=== PATIENT | female | born 1955 | race Caucasian/White ===

== ENCOUNTER 2018-09-10 06:00 | Day surgery (SDC) | payer OTHER ==
[~2018-09-10] VITALS: Ht 157.5 cm; Wt 77.0 kg
[2018-09-10 07:10] VITALS: Ht 157.5 cm; Wt 77.0 kg
[2018-09-10] MEDS ORDERED: VIT D (07:18)
[2018-09-10] MEDS ORDERED: OMEGA (07:18)
[2018-09-10] MEDS ORDERED: CALCIUM DAILY (07:18)
[2018-09-10] MEDS ORDERED: OMEP20CA16 PO (07:18)
[2018-09-10 07:31] VITALS: BP 143/78; PULSE 55; RESP 16
[2018-09-10] MEDS ORDERED: LIDOCAINE 4% SOLUTION 50 ML BTL ONE (07:33)
[2018-09-10] MEDS ORDERED: FENTAnyl 50 MCG/ML VIAL ONE (08:13)
[2018-09-10] MEDS ORDERED: MIDAZOLAM 1 MG/ML 2 ML INJ ONE ×2 (08:14)
[2018-09-10 08:33] VITALS: BP 101/55; PULSE 57; RESP 16
== END 2018-09-10 13:45 | disposition home or self-care (01) ==
LOC: GIL 06:00
PROVIDERS: ATTEND Internal Medicine Gastroenterology
DX: Z12.11 Encounter for screening for malignant neoplasm of colon (principal); K64.1 Second degree hemorrhoids; K29.50 Unspecified chronic gastritis without bleeding; K29.80 Duodenitis without bleeding
CPT/HCPCS: 43239; 45378; 88305; 88312; J2250; J3010; Z7610